=== PATIENT | male | born 1960 | race Caucasian/White ===

== ENCOUNTER 2017-11-14 16:22 | Emergency (ER) | payer BC ==
[~2017-11-14] VITALS: Wt 86.2 kg
[~2017-11-14 16:22] MED LIST: CLEOCIN150 MG PO; HYDROCODONE BIT1 T11 PO; PERCOCET 325 MG1 TA2 PO
[2017-11-14] MEDS ORDERED: CEFDINIR300 MG PO (16:41)
[2017-11-14] MEDS ORDERED: HYDROCODONE-AC1 EAC1 PO (16:42)
[2017-11-14 17:04] LABS: BASO % 0.2 % (0.0-1.0); EOS # 0.1 10*3/uL (0.0-0.4); EOS % 0.4 % (1.0-4.0); HEMATOCRIT 39.9 % (42.0-52.0); HEMOGLOBIN 14.3 g/dl (14.0-18.0); LYMPH # 1.4 10*3/uL (1.3-4.4); LYMPH % 11.3 % (27.0-41.0); MEAN CORPUSCULAR HGB 33.3 pg (27.0-31.0); MEAN CORPUSCULAR HGB CONC 35.8 g/dl (33.0-37.0); MONO # 1.1 10*3/uL (0.1-1.0); MONO % 8.8 % (3.0-9.0); NEUT # 9.9 10*3/uL (2.3-7.9); NEUT % 79.1 % (47.0-73.0); PLATELET COUNT AUTOMATED 228 10*3/uL (130-400); RED BLOOD COUNT 4.29 10*6/uL (4.50-5.90); RED CELL DISTRI WIDTH 12.2 % (0-14.5); WHITE BLOOD COUNT 12.6 10*3/uL (4.8-10.8)
[2017-11-14 17:19] LABS: ALBUMIN 3.6 gm/dl (3.1-4.5); ALKALINE PHOSPHATASE 80 U/L (45-117); BUN 10 mg/dl (7-24); CHLORIDE 100 mmol/L (98-107); CREATININE 1.06 mg/dL (0.70-1.30); LIPASE 115 U/L (73-393); SGOT/AST 14 IU/L (3-35); SGPT/ALT 21 U/L (12-78); SODIUM 137 mmol/L (136-145); TOTAL PROTEIN 7.3 gm/dL (6.4-8.2)
[2017-11-14] MEDS ORDERED: FLAGYL500 MG PO (19:08)
[2017-11-14] MEDS ORDERED: CIPRO500 MG PO (19:08)
== END 2017-11-14 19:14 | disposition left against medical advice (07) ==
LOC: ED 16:22
PROVIDERS: Nurse Practitioner Family
DX: K57.32 Diverticulitis of large intestine without perforation or abscess without bleeding (principal)

== ENCOUNTER 2018-03-07 11:15 | Emergency (ER) | payer BC ==
[~2018-03-07] VITALS: Ht 185.4 cm; Wt 83.9 kg
[~2018-03-07 11:15] MED LIST changes: +CEFDINIR300 MG PO; +CIPRO500 MG PO; +FLAGYL500 MG PO; +HYDROCODONE-AC1 EAC1 PO
[2018-03-07] MEDS ORDERED: PRILOSEC20 M1 PO (12:44)
== END 2018-03-07 12:52 | disposition home or self-care (01) ==
LOC: ED 11:15
DX: T18.128A Food in esophagus causing other injury, initial encounter (principal); X58.XXXA Exposure to other specified factors, initial encounter; Y93.89 Activity, other specified; Y92.89 Other specified places as the place of occurrence of the external cause; Y99.8 Other external cause status

== ENCOUNTER 2020-05-06 12:57 | Emergency (ER) | payer BC ==
[~2020-05-06] VITALS: Ht 185.4 cm; Wt 86.2 kg
[~2020-05-06 12:57] MED LIST changes: +PRILOSEC20 M1 PO
[2020-05-06] MEDS ORDERED: Bactroban Oint22 GM T (13:23)
[2020-05-06] MEDS ORDERED: CLARITIN-D 121 EACH PO (13:23)
[2020-05-06] MEDS ORDERED: FLONASE ALLERG9.9 ML NAS (13:23)
== END 2020-05-06 13:45 | disposition home or self-care (01) ==
LOC: ED 12:57
DX: S00.81XA Abrasion of other part of head, initial encounter (principal); J30.9 Allergic rhinitis, unspecified; K21.9 Gastro-esophageal reflux disease without esophagitis; W18.39XA Other fall on same level, initial encounter; Y93.89 Activity, other specified; Y92.89 Other specified places as the place of occurrence of the external cause; Y99.8 Other external cause status

== ENCOUNTER → 2023-05-05 | Outpatient (CLI) | payer SELFPAY ==
[~2023-05-05] MED LIST changes: +Bactroban Oint22 GM T; +CLARITIN-D 121 EACH PO; +FLONASE ALLERG9.9 ML NAS
== END | disposition home or self-care (01) ==
LOC: RAD 11:11
PROVIDERS: ATTEND Family Medicine
DX: M16.0 Bilateral primary osteoarthritis of hip (principal)

== ENCOUNTER → 2025-06-24 | Outpatient (CLI) | payer MEDICARE | LOC: RAD 10:06 | PROVIDERS: ATTEND Family Medicine | DX: M16.0 Bilateral primary osteoarthritis of hip (principal) ==